=== PATIENT | female | born 1990 | race Two or more races ===

== ENCOUNTER 2017-08-30 12:00 | Inpatient (IN) | payer OTHER ==
[2017-08-30] MEDS ORDERED: Sodium Chloride 0.9% 10 ML Syringe FLUSH PRN (12:17)
[2017-08-30] MEDS ORDERED: Sodium Chloride 0.9% 2.5 ML Syringe FLUSH PRN (12:17)
[2017-08-30] MEDS ORDERED: Nalbuphine 10 MG/1 ML Vial IVPUSH PRN (12:17)
[2017-08-30] MEDS ORDERED: Lidocaine 1% 50 ML MDV INJECT PRN (12:17)
[2017-08-30] MEDS ORDERED: Carboprost Tromethamine 250 MCG/1 ML Amp IM PRN (12:17)
[2017-08-30] MEDS ORDERED: Water For Irrigation,Sterile 1,000 ML Container IRR PRN (12:17)
[2017-08-30] MEDS ORDERED: Misoprostol 200 MCG Tab PO PRN (12:17)
[2017-08-30] MEDS ORDERED: Terbutaline 1 MG/ML SDV SUBCUT PRN (12:17)
[2017-08-30] MEDS ORDERED: Butorphanol 1 MG/ML SDV IVPUSH PRN (12:17)
[2017-08-30] MEDS ORDERED: Methylergonovine 0.2 MG/1 ML Amp IM PRN ×2 (12:17→19:28)
[2017-08-30] MEDS ORDERED: Oxytocin/0.9 % Sodium Chloride 30 UNIT/500 ML BAG IV SCH ×2 (12:30)
[2017-08-30] MEDS: Lactated Ringers 1,000 ML IV SCH ×3 (12:50→14:24)
--- NOTE | 2017-08-30 12:58 | PCM.SN ---
- Free Text/Narrative Note: Anesthesia Note: Difficulty per nursing staff starting IV. 18 GA started to L AC - flushes easily and secured. Hx obtained from pt during this time and anesthesia consent signed.
--- NOTE | 2017-08-30 13:02 | PCM.PREANE ---
Preanesthetic Assessment - Anesthesia/Transfusion/Family Hx Anesthesia History: No Prior Anesthesia Family History of Anesthesia Reaction: No Transfusion History: No Prior Transfusion(s) - Review of Systems General: No Symptoms Pulmonary: No Symptoms Cardiovascular: No Symptoms Gastrointestinal: No Symptoms Neurological: No Symptoms Other: Reports: None - Physical Assessment NPO Status Date: 08/30/17 NPO Status Time: 12:30 (julia) Height: 5 ft 0.75 in Weight: 162 lb ASA Class: 1E Mental Status: Alert & Oriented x3 Airway Class: Mallampati = 2 Dentition: Reports: Normal Dentition Thyro-Mental Finger Breadths: 3 Mouth Opening Finger Breadths: 3 ROM/Head Extension: Full Lungs: Clear to Auscultation, Normal Respiratory Effort Cardiovascular: Regular Rate, Regular Rhythm - Blood Blood Available: No Product(s) Available: None - Anesthesia Plan Free Text/Narrative:: IV started and discussed with pt different options for anesthesia depending upon the urgency of the situation - including GETA and Spinal. Pt verbalizes understanding and states she does not have any questions at this time. - Acknowledgements Anesthesia Type Planned: General Anesthesia, Spinal Pt an Appropriate Candidate for the Planned Anesthesia: Yes Alternatives and Risks of Anesthesia Discussed w Pt/Guardian: Yes Pt/Guardian Understands and Agrees with Anesthesia Plan: Yes PreAnesthesia Questionnaire - CURRENT (IN HOUSE) MEDS Current Meds: Current Medications Butorphanol Tartrate (Stadol) 1 mg IVPUSH Q1H PRN PRN Reason: Pain Carboprost Tromethamine (Hemabate Ds) 250 mcg IM ASDIRECTED PRN PRN Reason: Post Hemorrhage Lactated Ringer's (Ringers, Lactated) 1,000 mls @ 150 mls/hr IV ASDIRECTED DONALD Oxytocin/Sodium Chloride (Oxytocin 30 Unit/500 Ml-Ns) 30 unit in 500 mls @ 250 mls/hr IV TITRATE DONALD Oxytocin/Sodium Chloride (Oxytocin 30 Unit/500 Ml-Ns) 30 unit in 500 mls @ 2 mls/hr IV TITRATE DONALD; 2 MUNITS/MIN PRN Reason: Protocol Lidocaine HCl (Xylocaine 1%) 50 ml INJECT .ONCE PRN PRN Reason: Laceration repair Methylergonovine Maleate (Methergine) 0.2 mg IM ASDIRECTED PRN PRN Reason: Post Hemorrhage Misoprostol (Cytotec) 200 mcg PO .ONCE PRN PRN Reason: Post Hemorrhage Nalbuphine HCl (Nubain) 10 mg IVPUSH Q1H PRN PRN Reason: Pain (severe 7-10) Sodium Chloride (Saline Flush) 10 ml FLUSH ASDIRECTED PRN PRN Reason: Keep Vein Open Sodium Chloride (Saline Flush) 2.5 ml FLUSH ASDIRECTED PRN PRN Reason: Keep Vein Open Sterile Water (Sterile Water For Irrigation) 1,000 ml IRR ASDIRECTED PRN PRN Reason: delivery Terbutaline Sulfate (Brethine) 0.25 mg SUBCUT ASDIRECTED PRN PRN Reason: Tacysystole
[2017-08-30] MEDS ORDERED: Oxytocin/0.9 % Sodium Chloride 30 UNIT/500 ML BAG ONE (13:06)
[2017-08-30] MEDS ORDERED: Morphine PF 10 MG/10 ML SDV ONE (13:12)
[2017-08-30] MEDS ORDERED: Sodium Chloride 0.9% Irrigation 500 ML Container IRR PRN (13:15)
[2017-08-30] MEDS ORDERED: Acetaminophen 500 MG Tab PO ONE (17:21)
[2017-08-30] MEDS ORDERED: Water For Irrigation,Sterile 500 ML Container IRR SCH (19:15)
[2017-08-30] MEDS ORDERED: Docusate Sodium 100 MG Cap PO PRN (19:28)
[2017-08-30] MEDS ORDERED: Bisacodyl 10 MG Supp RECTAL PRN (19:28)
[2017-08-30] MEDS ORDERED: oxyCODONE 5 MG Tab PO PRN (19:28)
[2017-08-30] MEDS ORDERED: Lanolin 100% Cream 7 GM Tube TOP PRN (19:28)
[2017-08-30] MEDS ORDERED: Ibuprofen 800 MG Tab PO PRN (19:28)
[2017-08-30] MEDS ORDERED: Benzocaine/Menthol 20%-0.5% Spray 78 GM Cannister TOP PRN (19:28)
[2017-08-30] MEDS ORDERED: Witch Hazel Medicated Pads 40/Jar TOP PRN (19:28)
[2017-08-30] MEDS: Acetaminophen 500 MG Tab PO PRN (23:00)
--- NOTE | 2017-08-31 00:52 | OR ---
SURGEON: Latoya Pacheco M.D. DATE OF PROCEDURE: 08/30/2017 PREOPERATIVE DIAGNOSIS: A 30 and 4/7th weeks intrauterine , abnormal testing, intrauterine growth restriction. POSTOPERATIVE DIAGNOSIS: A 30 and 4/7th weeks intrauterine , abnormal testing, intrauterine growth restriction and abnormal heart tones. PROCEDURE: Vacuum-assisted vaginal delivery. PRIMARY SURGEON: Latoya Pacheco M.D. ANESTHESIA: Pudendal. ESTIMATED BLOOD LOSS: Less than 200 mL. FINDINGS: Live-born male, scores 9 and 10. Weight is pending at the time of dictation. Placenta was delivered spontaneously. Schultze intact with 3 vessels. There did appear to be an area of infarction and the placenta was sent for pathology. There was a left vaginal laceration that was repaired. COMPLICATIONS: None known. DISPOSITION: Mother and baby are in LDRP in good condition. BRIEF HISTORY: This is a 26-year-old female. She is G1, P0. She presents at 38 and 4/7th weeks' gestation for an obstetrical visit. Two weeks previously, she was found to have decreased growth at the 13th percentile. Repeat ultrasound today showed no growth since her prior ultrasound. Additionally, growth was below the 5th percentile. She was receiving NSTs and biophysical profiles due to growth restriction and the NST showed a deceleration with a single contraction. Therefore, I did recommend proceeding with delivery either by a scheduled C- section or induction of labor. She desired a trial of induction of labor. She was initially 2 cm, 80%, -2 station. Balloon catheter was placed through the cervix and filled with 50 mL of saline internally and externally in the balloon. Pitocin was started. After placement of the balloon, she had category 1 heart tones for the majority of labor. She had spontaneous rupture of membranes and expelled the balloon. At this point, she was 5-6 cm dilated. Within 45 minutes, she had progressed to complete. At this time, she was having deep decelerations and she was encouraged to push. DESCRIPTION OF PROCEDURE: With the patient in dorsal lithotomy position, the perineum was prepped with chlorhexidine and draped in the usual fashion for vaginal delivery. I did offer a pudendal block as I wanted to expedite delivery and it was difficult for her to push with pain on the perineum. A total of 10 mL of 1% lidocaine was injected 1 cm medial and inferior to the spinous process on the right and the left. With this, she had good perineal analgesia. She continued to push to a 4+ station. However, at this point, there was bradycardia. The bladder was emptied. The fetus was in the left occiput anterior position and I did recommend proceeding with a vacuum assistance, which she agreed to. The vacuum was placed 2 cm anterior to the posterior fontanelle in the midsagittal line. She did have a gynecoid pelvis and estimated weight was less than 5 pounds and with a single contraction, the fetus was delivered over the perineum with support. The vacuum was removed. Subsequent delivery of the infant's shoulders and body was performed. There was a tight nuchal cord that was then reduced. The infant was bulb suctioned by nose and mouth. The cord was clamped x2, after it had ceased to pulsate and was cut and Dr. Pope was present at the time of delivery. The is a liveborn male, scores were 9 and 10 and weight is pending at the time of dictation. Cord blood was collected for cord ABGs as well as routine cord blood sampling. Pitocin was initiated after delivery of the to assist with delivery of the placenta, which was delivered spontaneously. Schultze intact with 3 vessels. Upon inspection of the pelvis and perineum, there was a left vaginal sidewall laceration that was somewhat undermined, but did not extend onto the perineum. An additional 10 mL of 1% lidocaine was injected into the area. Running lock suture was utilized to reapproximate the vaginal mucosa and deep sutures were placed for complete hemostasis. Final sponge, needle, and instrument counts were correct. There were no known complications. Mother and are in LDRP in good condition. DAIJA / BASIL /[id number]
--- NOTE | 2017-08-31 06:16 | PCM.PNPP ---
- General Info Date of Service: 08/31/17 Functional Status: Reports: Pain Controlled, Tolerating Diet, Ambulating, Urinating - Review of Systems General: Denies: Fever, Fatigue, Chills HEENT: Denies: Headaches Pulmonary: Denies: Shortness of Breath Cardiovascular: Denies: Chest Pain, Palpitations, Dyspnea on Exertion Gastrointestinal: Denies: Abdominal Pain Genitourinary: Denies: Burning, Incontinence Musculoskeletal: Reports: No Symptoms Skin: Reports: No Symptoms Neurological: Reports: No Symptoms Psychiatric: Reports: No Symptoms - General Info Date of Service: 08/31/17 - Patient Data Vital Signs - Most Recent: Last Vital Signs Temp 36.9 C 08/31/17 04:00 Pulse 68 08/31/17 04:00 Resp 17 08/31/17 04:00 BP 115/72 08/31/17 04:00 Pulse Ox 97 08/31/17 04:00 Weight - Most Recent: 162 lb I&O - Last 24 Hours: Intake & Output 08/30/17 08/30/17 08/31/17 14:59 22:59 06:59 Intake Total 750 Balance 750 Lab Results - Last 24 Hours: Laboratory Results - last 24 hr 08/30/17 08/30/17 08/31/17 Range/Units 12:48 12:48 05:39 WBC 9.68 (4.0-11.0) K/uL RBC 4.33 (4.30-5.90) M/uL Hgb 13.0 10.7 L (12.0-16.0) g/dL Hct 37.8 30.7 L (36.0-46.0) % MCV 87.3 (80.0-98.0) fL MCH 30.0 (27.0-32.0) pg MCHC 34.4 (31.0-37.0) g/dL RDW Std Deviation 41.8 (28.0-62.0) fl RDW Coeff of Priya 13 (11.0-15.0) % Plt Count 220 (150-400) K/uL MPV 10.20 (7.40-12.00) fL Nucleated RBC % 0.0 /100WBC Nucleated RBCs # 0 K/uL Blood Type O POSITIVE Antibody Screen NEGATIVE Med Orders - Current: Current Medications Acetaminophen (Tylenol Extra Strength) 1,000 mg PO Q4H PRN PRN Reason: Pain Last Admin: 08/30/17 23:00 Dose: 1,000 mg Benzocaine/Menthol (Dermoplast Pain Relief 20%-0.5% [place]) 0 gm TOP ASDIRECTED PRN PRN Reason: Perineal Comfort Measure Last Admin: 08/30/17 21:48 Dose: 1 canister Bisacodyl (Dulcolax) 10 mg RECTAL .ONCE PRN PRN Reason: Constipation Docusate Sodium (Colace) 100 mg PO BID PRN PRN Reason: Constipation Emollient Ointment (Lansinoh Hpa) 0 gm TOP ASDIRECTED PRN PRN Reason: Sore Nipples Ibuprofen (Motrin) 800 mg PO Q6H PRN PRN Reason: Pain Methylergonovine Maleate (Methergine) 0.2 mg IM .ONCE PRN PRN Reason: Excessive Vaginal Bleeding Oxycodone HCl (Oxycodone) 5 mg PO Q2H PRN PRN Reason: Pain Witch [place] (Tucks) 1 pad TOP ASDIRECTED PRN PRN Reason: comfort care Last Admin: 08/30/17 21:47 Dose: 1 tub Discontinued Medications Acetaminophen (Tylenol Extra Strength) 1,000 mg PO ONETIME ONE Stop: 08/30/17 17:22 Last Admin: 08/30/17 17:34 Dose: 1,000 mg Butorphanol Tartrate (Stadol) 1 mg IVPUSH Q1H PRN PRN Reason: Pain Last Admin: 08/30/17 18:10 Dose: 1 mg Carboprost Tromethamine (Hemabate Ds) 250 mcg IM ASDIRECTED PRN PRN Reason: Post Hemorrhage Lactated Ringer's (Ringers, Lactated) 1,000 mls @ 150 mls/hr IV ASDIRECTED DONALD Last Admin: 08/30/17 14:24 Dose: 150 mls/hr Oxytocin/Sodium Chloride (Oxytocin 30 Unit/500 Ml-Ns) 30 unit in 500 mls @ 250 mls/hr IV TITRATE DONALD Oxytocin/Sodium Chloride (Oxytocin 30 Unit/500 Ml-Ns) 30 unit in 500 mls @ 2 mls/hr IV TITRATE DONALD; 2 MUNITS/MIN PRN Reason: Protocol Last Titration: 08/30/17 18:48 Dose: 250 munits/min, 250 mls/hr Oxytocin/Sodium Chloride (Oxytocin 30 Unit/500 Ml-Ns) Confirm Administered Dose 30 unit in 500 mls @ as directed .ROUTE .[place] ONE Stop: 08/30/17 13:07 Lidocaine HCl (Xylocaine 1%) 50 ml INJECT .ONCE PRN PRN Reason: Laceration repair Last Admin: 08/30/17 18:40 Dose: 50 ml Methylergonovine Maleate (Methergine) 0.2 mg IM ASDIRECTED PRN PRN Reason: Post Hemorrhage Misoprostol (Cytotec) 200 mcg PO .ONCE PRN PRN Reason: Post Hemorrhage Morphine Sulfate (Duramorph Pf) Confirm Administered Dose 10 mg .ROUTE .[place] ONE Stop: 08/30/17 13:13 Nalbuphine HCl (Nubain) 10 mg IVPUSH Q1H PRN PRN Reason: Pain (severe 7-10) Sodium Chloride (Saline Flush) 10 ml FLUSH ASDIRECTED PRN PRN Reason: Keep Vein Open Sodium Chloride (Saline Flush) 2.5 ml FLUSH ASDIRECTED PRN PRN Reason: Keep Vein Open Sodium Chloride (Sodium Chloride 0.9%) 500 ml IRR ASDIRECTED PRN PRN Reason: Cervical ripening balloons Sterile Water (Sterile Water For Irrigation) 1,000 ml IRR ASDIRECTED PRN PRN Reason: delivery Last Admin: 08/30/17 18:40 Dose: 1,000 ml Sterile Water (Sterile Water For Irrigation) 500 ml IRR ASDIRECTED DONALD Terbutaline Sulfate (Brethine) 0.25 mg SUBCUT ASDIRECTED PRN PRN Reason: Tacysystole - Infant Interaction Infant Disposition, : [place] in Room with Family Infant Feeding: Breastfed Infant; Nursed Well Support Person: Significant Other - Recovery Exam Fundal Tone: Firm Fundal Level: 1 Fingerbreadths Below Umbilicus Fundal Placement: Midline Lochia Amount: Scant Lochia Color: Rubra/Red Episiotomy/Laceration: Approximated Bladder Status: Voiding Urinary Elimination: Voided - Exam General: Alert, Oriented Neck: Supple Lungs: Clear to Auscultation, Normal Respiratory Effort Cardiovascular: Regular Rate, Regular Rhythm GI/Abdominal Exam: Normal Bowel Sounds, Non-Tender Extremities: No Pedal Edema Skin: Warm Psy/Mental Status: Alert, Normal Affect, Normal Mood - Problem List & Annotations (1) Vaginal delivery SNOMED Code(s): 480472203 Code(s): O80 - ENCOUNTER FOR FULL-TERM UNCOMPLICATED DELIVERY Status: Acute Current Visit: Yes - Problem List Review Problem List Initiated/Reviewed/Updated: Yes - Assessment Assessment:: PPD#1 s/p , stable and afebrile - Plan Plan:: Doing well. SGA baby- doing well Continue current care and aim for discharge tomorrow
--- NOTE | 2017-08-31 15:33 | PCM48HPAN ---
Post Anesthesia Note - EVALUATION WITHIN 48HRS OF ANESTHETIC Vital Signs in Normal Range: Yes Patient Participated in Evaluation: Yes Respiratory Function Stable: Yes Airway Patent: Yes Cardiovascular Function Stable: Yes Hydration Status Stable: Yes Pain Control Satisfactory: Yes Nausea and Vomiting Control Satisfactory: Yes Mental Status Recovered: Yes
[2017-09-01] MEDS: Acetaminophen 500 MG Tab PO PRN (06:51)
--- NOTE | 2017-09-01 08:15 | PCM.PNPP ---
<Betzaida Pitts - Last Filed: 09/01/17 08:12> - General Info Date of Service: 09/01/17 Functional Status: Reports: Pain Controlled, Tolerating Diet, Ambulating, Urinating - Review of Systems General: Denies: Fever, Weakness, Fatigue Pulmonary: Denies: Shortness of Breath, Pleuritic Chest Pain, Cough Cardiovascular: Denies: Chest Pain, Palpitations, Dyspnea on Exertion Gastrointestinal: Denies: Abdominal Pain Genitourinary: Denies: Dysuria - General Info Date of Service: 09/01/17 - Patient Data Vital Signs - Most Recent: Last Vital Signs Temp 36.8 C 08/31/17 19:00 Pulse 99 08/31/17 19:00 Resp 16 08/31/17 19:00 BP 129/83 08/31/17 19:00 Pulse Ox 99 08/31/17 19:00 Weight - Most Recent: 162 lb Med Orders - Current: Current Medications Acetaminophen (Tylenol Extra Strength) 1,000 mg PO Q4H PRN PRN Reason: Pain Last Admin: 09/01/17 06:51 Dose: 1,000 mg Benzocaine/Menthol (Dermoplast Pain Relief 20%-0.5% [place]) 0 gm TOP ASDIRECTED PRN PRN Reason: Perineal Comfort Measure Last Admin: 08/30/17 21:48 Dose: 1 canister Bisacodyl (Dulcolax) 10 mg RECTAL .ONCE PRN PRN Reason: Constipation Docusate Sodium (Colace) 100 mg PO BID PRN PRN Reason: Constipation Emollient Ointment (Lansinoh Hpa) 0 gm TOP ASDIRECTED PRN PRN Reason: Sore Nipples Last Admin: 09/01/17 06:51 Dose: 7 gm Ibuprofen (Motrin) 800 mg PO Q6H PRN PRN Reason: Pain Methylergonovine Maleate (Methergine) 0.2 mg IM .ONCE PRN PRN Reason: Excessive Vaginal Bleeding Oxycodone HCl (Oxycodone) 5 mg PO Q2H PRN PRN Reason: Pain Witch [place] (Tucks) 1 pad TOP ASDIRECTED PRN PRN Reason: comfort care Last Admin: 08/30/17 21:47 Dose: 1 tub Discontinued Medications Acetaminophen (Tylenol Extra Strength) 1,000 mg PO ONETIME ONE Stop: 08/30/17 17:22 Last Admin: 08/30/17 17:34 Dose: 1,000 mg Butorphanol Tartrate (Stadol) 1 mg IVPUSH Q1H PRN PRN Reason: Pain Last Admin: 08/30/17 18:10 Dose: 1 mg Carboprost Tromethamine (Hemabate Ds) 250 mcg IM ASDIRECTED PRN PRN Reason: Post Hemorrhage Lactated Ringer's (Ringers, Lactated) 1,000 mls @ 150 mls/hr IV ASDIRECTED DONALD Last Admin: 08/30/17 14:24 Dose: 150 mls/hr Oxytocin/Sodium Chloride (Oxytocin 30 Unit/500 Ml-Ns) 30 unit in 500 mls @ 250 mls/hr IV TITRATE DONALD Oxytocin/Sodium Chloride (Oxytocin 30 Unit/500 Ml-Ns) 30 unit in 500 mls @ 2 mls/hr IV TITRATE DONALD; 2 MUNITS/MIN PRN Reason: Protocol Last Titration: 08/30/17 18:48 Dose: 250 munits/min, 250 mls/hr Oxytocin/Sodium Chloride (Oxytocin 30 Unit/500 Ml-Ns) Confirm Administered Dose 30 unit in 500 mls @ as directed .ROUTE .STK-MED ONE Stop: 08/30/17 13:07 Last Admin: 08/31/17 09:06 Dose: Not Given Lidocaine HCl (Xylocaine 1%) 50 ml INJECT .ONCE PRN PRN Reason: Laceration repair Last Admin: 08/30/17 18:40 Dose: 50 ml Methylergonovine Maleate (Methergine) 0.2 mg IM ASDIRECTED PRN PRN Reason: Post Hemorrhage Misoprostol (Cytotec) 200 mcg PO .ONCE PRN PRN Reason: Post Hemorrhage Morphine Sulfate (Duramorph Pf) Confirm Administered Dose 10 mg .ROUTE .STK-MED ONE Stop: 08/30/17 13:13 Nalbuphine HCl (Nubain) 10 mg IVPUSH Q1H PRN PRN Reason: Pain (severe 7-10) Sodium Chloride (Saline Flush) 10 ml FLUSH ASDIRECTED PRN PRN Reason: Keep Vein Open Sodium Chloride (Saline Flush) 2.5 ml FLUSH ASDIRECTED PRN PRN Reason: Keep Vein Open Sodium Chloride (Sodium Chloride 0.9%) 500 ml IRR ASDIRECTED PRN PRN Reason: Cervical ripening balloons Sterile Water (Sterile Water For Irrigation) 1,000 ml IRR ASDIRECTED PRN PRN Reason: delivery Last Admin: 08/30/17 18:40 Dose: 1,000 ml Sterile Water (Sterile Water For Irrigation) 500 ml IRR ASDIRECTED DONALD Terbutaline Sulfate (Brethine) 0.25 mg SUBCUT ASDIRECTED PRN PRN Reason: Tacysystole - Interaction Disposition, : in Room with Family Feeding: Breastfed ; Nursed Well Support Person: Significant Other - Recovery Exam Fundal Tone: Firm Fundal Level: At Umbilicus Fundal Placement: Midline Lochia Amount: Small Lochia Color: Rubra/Red Episiotomy/Laceration: Approximated Bladder Status: Voiding Urinary Elimination: Voided - Exam General: Alert, Oriented Neck: Supple Lungs: Clear to Auscultation, Normal Respiratory Effort Cardiovascular: Regular Rate, Regular Rhythm GI/Abdominal Exam: Normal Bowel Sounds, Soft, No Distention, No Mass Extremities: Normal Inspection, Pedal Edema (trace) - Problem List Review Problem List Initiated/Reviewed/Updated: Yes - Assessment Assessment:: PPD#s s/p , Minimal lochia and pain. Discharge home today. - Plan Plan:: Discharge home today. Nothing in the vagina for 6 weeks. Continue PNV while breast feeding. Can use OTC ibuprofen/tylenol as needed for pain. Instructed patient to call if she develops fever greater than 101 or bleeding through a large pad an hour. F/U with [facility] in 6 weeks. <Kelly Glover - Last Filed: 09/01/17 09:11> - Patient Data Vital Signs - Most Recent: Last Vital Signs Temp 36.8 C 08/31/17 19:00 Pulse 99 08/31/17 19:00 Resp 16 08/31/17 19:00 BP 129/83 08/31/17 19:00 Pulse Ox 99 08/31/17 19:00 Med Orders - Current: Current Medications Acetaminophen (Tylenol Extra Strength) 1,000 mg PO Q4H PRN PRN Reason: Pain Last Admin: 09/01/17 06:51 Dose: 1,000 mg Benzocaine/Menthol (Dermoplast Pain Relief 20%-0.5% [place]) 0 gm TOP ASDIRECTED PRN PRN Reason: Perineal Comfort Measure Last Admin: 08/30/17 21:48 Dose: 1 canister Bisacodyl (Dulcolax) 10 mg RECTAL .ONCE PRN PRN Reason: Constipation Docusate Sodium (Colace) 100 mg PO BID PRN PRN Reason: Constipation Emollient Ointment (Lansinoh Hpa) 0 gm TOP ASDIRECTED PRN PRN Reason: Sore Nipples Last Admin: 09/01/17 06:51 Dose: 7 gm Ibuprofen (Motrin) 800 mg PO Q6H PRN PRN Reason: Pain Methylergonovine Maleate (Methergine) 0.2 mg IM .ONCE PRN PRN Reason: Excessive Vaginal Bleeding Oxycodone HCl (Oxycodone) 5 mg PO Q2H PRN PRN Reason: Pain Witch [place] (Tucks) 1 pad TOP ASDIRECTED PRN PRN Reason: comfort care Last Admin: 08/30/17 21:47 Dose: 1 tub Discontinued Medications Acetaminophen (Tylenol Extra Strength) 1,000 mg PO ONETIME ONE Stop: 08/30/17 17:22 Last Admin: 08/30/17 17:34 Dose: 1,000 mg Butorphanol Tartrate (Stadol) 1 mg IVPUSH Q1H PRN PRN Reason: Pain Last Admin: 08/30/17 18:10 Dose: 1 mg Carboprost Tromethamine (Hemabate Ds) 250 mcg IM ASDIRECTED PRN PRN Reason: Post Hemorrhage Lactated Ringer's (Ringers, Lactated) 1,000 mls @ 150 mls/hr IV ASDIRECTED DONALD Last Admin: 08/30/17 14:24 Dose: 150 mls/hr Oxytocin/Sodium Chloride (Oxytocin 30 Unit/500 Ml-Ns) 30 unit in 500 mls @ 250 mls/hr IV TITRATE DONALD Oxytocin/Sodium Chloride (Oxytocin 30 Unit/500 Ml-Ns) 30 unit in 500 mls @ 2 mls/hr IV TITRATE DONALD; 2 MUNITS/MIN PRN Reason: Protocol Last Titration: 08/30/17 18:48 Dose: 250 munits/min, 250 mls/hr Oxytocin/Sodium Chloride (Oxytocin 30 Unit/500 Ml-Ns) Confirm Administered Dose 30 unit in 500 mls @ as directed .ROUTE .STK-MED ONE Stop: 08/30/17 13:07 Last Admin: 08/31/17 09:06 Dose: Not Given Lidocaine HCl (Xylocaine 1%) 50 ml INJECT .ONCE PRN PRN Reason: Laceration repair Last Admin: 08/30/17 18:40 Dose: 50 ml Methylergonovine Maleate (Methergine) 0.2 mg IM ASDIRECTED PRN PRN Reason: Post Hemorrhage Misoprostol (Cytotec) 200 mcg PO .ONCE PRN PRN Reason: Post Hemorrhage Morphine Sulfate (Duramorph Pf) Confirm Administered Dose 10 mg .ROUTE .STK-MED ONE Stop: 08/30/17 13:13 Nalbuphine HCl (Nubain) 10 mg IVPUSH Q1H PRN PRN Reason: Pain (severe 7-10) Sodium Chloride (Saline Flush) 10 ml FLUSH ASDIRECTED PRN PRN Reason: Keep Vein Open Sodium Chloride (Saline Flush) 2.5 ml FLUSH ASDIRECTED PRN PRN Reason: Keep Vein Open Sodium Chloride (Sodium Chloride 0.9%) 500 ml IRR ASDIRECTED PRN PRN Reason: Cervical ripening balloons Sterile Water (Sterile Water For Irrigation) 1,000 ml IRR ASDIRECTED PRN PRN Reason: delivery Last Admin: 08/30/17 18:40 Dose: 1,000 ml Sterile Water (Sterile Water For Irrigation) 500 ml IRR ASDIRECTED DONALD Terbutaline Sulfate (Brethine) 0.25 mg SUBCUT ASDIRECTED PRN PRN Reason: Tacysystole - Problem List & Annotations (1) Vaginal delivery SNOMED Code(s): 422106117 Code(s): O80 - ENCOUNTER FOR FULL-TERM UNCOMPLICATED DELIVERY Status: Acute Current Visit: Yes - Assessment Assessment:: Patient seen and evaluated independently - Plan Plan:: Agree with above. Patient may be discharged home today
== END 2017-09-01 11:00 | disposition home or self-care (01) | DRG 775 ==
LOC: MW.OBCHECK 12:00 → MW.OB 12:05 → MW.OBCHECK 12:29 → MW.OB 12:29 → OBSVTOIN 18:45 → MW.OB 08-31 02:16
PROVIDERS: ADMIT Obstetrics & Gynecology; ATTEND Obstetrics & Gynecology
PROC: 10D07Z6 Extraction of Products of Conception, Vacuum, Via Natural or Artificial Opening (ICD-10-PCS; principal; 2017-08-30)
PROC: 0U7C7ZZ Dilation of Cervix, Via Natural or Artificial Opening (ICD-10-PCS; 2017-08-30)
PROC: 3E033VJ Introduction of Other Hormone into Peripheral Vein, Percutaneous Approach (ICD-10-PCS; 2017-08-30)
PROC: 0HQ9XZZ Repair Perineum Skin, External Approach (ICD-10-PCS; 2017-08-30)
DX: O36.5930 Maternal care for other known or suspected poor fetal growth, third trimester, not applicable or unspecified (principal); O76 Abnormality in fetal heart rate and rhythm complicating labor and delivery; Z3A.38 38 weeks gestation of pregnancy; Z37.0 Single live birth
CPT/HCPCS: 36410; 36415; 59025; 59409; 85014; 85018; 85027; 86850; 86900; 86901; 88307; A9270-GY; J0595; J2270; J2590; J7120

== ENCOUNTER 2018-09-20 10:22 | Day surgery (SDC) | payer OTHER ==
[~2018-09-20 10:22] MED LIST: Lactated Ringers 1,000 ML IV SCH; ceFAZolin 2 GM in Premix Bag 1 BAG IV ONE
[2018-09-20] MEDS ORDERED: diphenhydrAMINE 50 MG/ML SDV ONE (10:50)
[2018-09-20] MEDS ORDERED: Phenylephrine/Normal Saline 100 MCG/ML 10 ML Syringe ONE (10:51)
[2018-09-20] MEDS ORDERED: Dexamethasone 4 MG/ML 5 ML MDV ONE (10:51)
[2018-09-20] MEDS ORDERED: Ondansetron 4 MG/2 ML SDV ONE (10:51)
[2018-09-20] MEDS ORDERED: Midazolam 1 MG/ML 2 ML SDV ONE (10:52)
[2018-09-20] MEDS ORDERED: Propofol 200 MG/20 ML SDV ONE (10:52)
[2018-09-20] MEDS ORDERED: fentaNYL 100 MCG/2 ML SDV ONE (10:53)
--- NOTE | 2018-09-20 11:36 | PCM.PREANE ---
Preanesthetic Assessment - Anesthesia/Transfusion/Family Hx Anesthesia History: No Prior Anesthesia (no surgeries in her life) Family History of Anesthesia Reaction: No Transfusion History: No Prior Transfusion(s) - Review of Systems General: No Symptoms Pulmonary: No Symptoms Cardiovascular: No Symptoms, Edema Gastrointestinal: No Symptoms Neurological: No Symptoms Other: Reports: None (eczema, quit smoking 2017, slightly overweight) - Physical Assessment NPO Status Date: 09/20/18 NPO Status Time: 00:00 Pulse: 68 O2 Sat by Pulse Oximetry: 97 Respiratory Rate: 16 Blood Pressure: 110/57 Temperature: 36.2 C Vital Signs: Last Vital Signs Temp 36.2 C 09/20/18 11:05 Pulse 68 09/20/18 11:05 Resp 16 09/20/18 11:05 BP 110/59 L 09/20/18 11:05 Pulse Ox 97 09/20/18 11:05 Height: 1.52 m Weight: 72.575 kg ASA Class: 1 Mental Status: Alert & Oriented x3 Airway Class: Mallampati = 1 Dentition: Reports: Normal Dentition Thyro-Mental Finger Breadths: 2 Mouth Opening Finger Breadths: 3 ROM/Head Extension: Full Lungs: Clear to Auscultation, Normal Respiratory Effort Cardiovascular: Regular Rate, Regular Rhythm, No Murmurs - Lab Values: Laboratory Last Values Urine HCG, Qual NEGATIVE (NEGATIVE) 09/20/18 11:00 CBC and CMP and UA were all well within normal limits - Imaging/EKG Impressions: EKG and [employer] were unremarkable. - Allergies Allergies/Adverse Reactions: Allergies Allergy/AdvReac Type Severity Reaction Status Date / Time No Known Allergies Allergy Verified 09/17/18 13:00 - Blood Blood Available: No Product(s) Available: None - Anesthesia Plan Pre-Op Medication Ordered: None - Acknowledgements Anesthesia Type Planned: General Anesthesia (Plan: GA with LMA (no history of GERD)) Pt an Appropriate Candidate for the Planned Anesthesia: Yes Alternatives and Risks of Anesthesia Discussed w Pt/Guardian: Yes Pt/Guardian Understands and Agrees with Anesthesia Plan: Yes PreAnesthesia Questionnaire - Past Health History Medical/Surgical History: Denies Medical/Surgical History HEENT History: Reports: Other (See Below) Other HEENT History: wears glasses Cardiovascular History: Reports: Automatic Implantable Cardioverter Defibrillators Endocrine/Metabolic History: Reports: Obesity/BMI 30+ Dermatologic History: Reports: Eczema - Infectious Disease History Infectious Disease History: Reports: Chicken Pox - Past Surgical History Head Surgeries/Procedures: Reports: None - SUBSTANCE USE Smoking Status *Q: Former Smoker Recreational Drug Use History: No - HOME MEDS Home Medications: Home Meds . [No Known Home Meds] 09/17/18 [History] - CURRENT (IN HOUSE) MEDS Current Meds: Current Medications Lactated Ringer's (Ringers, Lactated) 1,000 mls @ 125 mls/hr IV ASDIRECTED DONALD Last Admin: 09/20/18 11:19 Dose: 125 mls/hr Discontinued Medications Dexamethasone (Dexamethasone) Confirm Administered Dose 20 mg .ROUTE .STK-MED ONE Stop: 09/20/18 10:52 Diphenhydramine HCl (Benadryl) Confirm Administered Dose 50 mg .ROUTE .STK-MED ONE Stop: 09/20/18 10:51 Fentanyl (Sublimaze) Confirm Administered Dose 100 mcg .ROUTE .STK-MED ONE Stop: 09/20/18 10:54 Cefazolin Sodium/Dextrose 2 gm (/ Premix) 50 mls @ 100 mls/hr IV ONETIME ONE Stop: 09/19/18 23:22 Lidocaine HCl (Xylocaine-Mpf 1%) Confirm Administered Dose 5 mls @ as directed .ROUTE .STK-MED ONE Stop: 09/20/18 10:52 Midazolam HCl (Versed 1 Mg/Ml) Confirm Administered Dose 2 mg .ROUTE .STK-MED ONE Stop: 09/20/18 10:53 Ondansetron HCl (Zofran) Confirm Administered Dose 4 mg .ROUTE .STK-MED ONE Stop: 09/20/18 10:52 Phenylephrine HCl (Phenylephrine In Ns 100 Mcg/Ml) Confirm Administered Dose 1 mg .ROUTE .STK-MED ONE Stop: 09/20/18 10:52 Propofol (Diprivan 20 Ml) Confirm Administered Dose 200 mg .ROUTE .STK-MED ONE Stop: 09/20/18 10:53
--- NOTE | 2018-09-20 11:37 | PCM.SN ---
- Free Text/Narrative Note: H+P reviewed, patient is healthy and has no significant changes since H+P was done. Sticker signed on last page of H+P to update. Kaley Cardoso MD Anesthesiologist
[2018-09-20] MEDS ORDERED: Bupivacaine 0.5% 30 ML SDV ONE (12:46)
--- NOTE | 2018-09-20 13:01 | PN ---
PLANNED PROCEDURE: Open reduction with internal fixation of fifth metatarsal fracture, right foot. PAST MEDICAL HISTORY: Allergies: No known drug allergies. MEDICATIONS: None. PAST SURGICAL HISTORY: None. LABORATORY DATA: White blood cell 5.93, red blood cell 4.73, hemoglobin 13.5, hematocrit 41.3, and platelets 372. Glucose 100. Calcium 9.9, BUN 10, creatinine 0.7, sodium 139, potassium 4.1, chloride 104, and CO2 of 28. Urinalysis was unremarkable. Chest x-ray showed no acute cardiopulmonary process. EKG showed normal sinus rhythm. The patient was cleared by Dr. Kourtney Bustillos with no contraindications to surgery noted. All the patient's questions have been answered. No guarantees expressed or implied. Risks and benefits of surgery have been discussed with the patient including risk of nonunion, risk of postoperative infection, risk of prolonged healing. The patient understands risks and benefits and has consented in writing with a witness present to surgery today consisting of open reduction with internal fixation of the fifth metatarsal fracture of the right foot. No guarantees expressed or implied. COLT GRACIA /[id number]
[2018-09-20] MEDS ORDERED: HYDROmorphone 2 MG/ML SDV IVPUSH PRN (13:20)
[2018-09-20] MEDS ORDERED: Meperidine PF 25 MG/ML Syringe IVPUSH SCH (13:30)
[2018-09-20] MEDS ORDERED: Promethazine 25 MG/ML SDV IM SCH (13:30)
--- NOTE | 2018-09-20 15:04 | CR ---
EXAMINATION: Right foot HISTORY: Open reduction COMPARISON: 08/09/2018 TECHNIQUE: Total of 8 fluoroscopic images provided FINDINGS/IMPRESSION: Operative control films demonstrate a single screw fixating a proximal fifth metatarsal fracture.
--- NOTE | 2018-09-20 15:34 | PCM.OPNOTE ---
- General Post-Op/Procedure Note Date of Surgery/Procedure: 09/20/18 Operative Procedure(s): open reduction with internal fixation of fifth metatarsal fracture right foot Findings: consistent with diagnosis Pre Op Diagnosis: fracture of fifth metatarsal right foot Post-Op Diagnosis: fracture of fifth metatarsal right foot Anesthesia Technique: General LMA Primary Surgeon: Garth Abel Anesthesia Provider: Cade Cardoso Pathology: none EBL in mLs: 5 Complications: none Condition: Good Free Text/Narrative:: materials: 4-0 vicryl, 4-0 prolene, [place] titanium cannulated intramedullar screw 5.0 mm x 42 mm, one injectables: 8 ml 0.5% bupviacaine plain
--- NOTE | 2018-09-20 15:40 | PCM.POSTAN ---
POST ANESTHESIA ASSESSMENT - MENTAL STATUS Mental Status: Oriented, Somnolent (awake but sleepy/drowsy. Easiy responds to verbal stimuli) - VITAL SIGNS Pulse Rate: 68 SaO2: 100 Resp Rate: 15 Blood Pressure: 113/65 - RESPIRATORY Respiratory Status: Respiratory Rate WNL, Airway Patent, O2 Saturation Stable - CARDIOVASCULAR CV Status: Pulse Rate WNL, Blood Pressure Stable - GASTROINTESTINAL GI Status: No Symptoms - PAIN Pain Score: 1 (local infiltration by surgeon, Toradol and fentanyl in OR) - POST OP HYDRATION Hydration Status: Adequate & Stable - OBSERVATIONS Free Text/Narrative:: good post op phase I recovery
--- NOTE | 2018-09-20 15:57 | PCM48HPAN ---
Post Anesthesia Note - EVALUATION WITHIN 48HRS OF ANESTHETIC Vital Signs in Normal Range: Yes Patient Participated in Evaluation: Yes Respiratory Function Stable: Yes Airway Patent: Yes Cardiovascular Function Stable: Yes Hydration Status Stable: Yes Pain Control Satisfactory: Yes Nausea and Vomiting Control Satisfactory: Yes Pulse Rate: 68 Resp Rate: 16 Temperature: 36.2 C Blood Pressure: 113/65 - COMMENTS/OBSERVATIONS Free Text/Narrative:: awake and alert. Drinking . Pain /10. Ready to go home with fianc. Good postop phase II recovery.
--- NOTE | 2018-09-21 11:15 | OR ---
SURGEON: Garth Abel DPM DATE OF PROCEDURE: 09/20/2018 PREOPERATIVE DIAGNOSIS: Fracture of the 5th metatarsal, right foot. POSTOPERATIVE DIAGNOSIS: Fracture of the 5th metatarsal, right foot. OPERATIVE PROCEDURE: Open reduction and internal fixation of 5th metatarsal fracture, right foot. FINDINGS: Consistent with diagnosis. HEMOSTASIS: Above ankle pneumatic tourniquet inflated to a pressure of 250 mmHg after an Esmarch bandage exsanguination of the right lower extremity. PATHOLOGY: None. ESTIMATED BLOOD LOSS: 5 mL. COMPLICATIONS: None. MATERIALS: One [place] titanium partially threaded and cannulated screw measuring 5 mm diameter x 42 mm in length, 4-0 Vicryl, and 4-0 Prolene. INJECTABLES: 8 mL of 0.5% Marcaine plain. CONDITION: The patient tolerated the procedure and the anesthesia well. No complications were noted as the patient had a prompt hyperemic response to all digits of the right foot upon deflation of the above ankle pneumatic tourniquet. The patient tolerated the procedure and the anesthesia well and no complication. 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 She has been treated conservatively since then and on followup examination and x-ray, there was no appreciable improvement in her fracture at the site on the 5th metatarsal which is well documented for having poor vascularity and therefore there is a high likelihood of nonunion if surgery is not performed and this risk is decreased, although not eliminated by performing surgery at this point. The patient desires to do everything possible to speed her recovery and opts for surgical treatment today. The patient understands risks and benefits of the surgery including the potential for a malunion or nonunion, and the usual small risk of a postoperative infection. All patient questions have been answered. No guarantees expressed or implied. The patient signed the consent form with a witness present and it was placed in the patient's chart. PROCEDURE IN DETAIL: The patient was brought into the operating room, placed on the operating table initially in a supine position, at which time anesthesia was induced. The patient was then rotated into a lateral decubitus position with the right lower extremity superior to the left lower extremity. Aseptic scrub and drape were performed about the right lower extremity in the usual aseptic manner. Preoperative fluoroscopy utilized to lianna relevant anatomy and to plan the incision site. Tourniquet was inflated following Esmarch bandage exsanguination to a pressure of 250 mmHg. Procedure proceeded with an approximately 1.5 oblique incision located approximately 1 cm proximal to the base of the 5th metatarsal of the right foot, and this was then followed by an approximately 1 cm linear incision from proximal to distal and placed directly over the base of the 5th metatarsal, lateral aspect in order to visualize the very proximal fracture. The incision was deepened using both the sharp and blunt dissection. Care was taken to preserve and protect the neural and tendinous structures. The sural nerve was not visualized through these incisions although care was taken to avoid any structure that could have represented the sural nerve. The peroneus brevis tendon was retracted plantarly to enable access to the base of the 5th metatarsal and the insertion of the K-wire. There were no small bleeders noted that required any cauterizing. Intraoperative fluoroscopy was used throughout the procedure. K-wire mounted on the wire steam train driver was advanced from proximal to distal through the center of the shaft of the 5th metatarsal approximately [address] through the bone and this facilitated drilling of the medullary canal and measurements taken leading to the selection of a 5.0 x 42 mm [place] titanium partially threaded and cannulated screw. The screw was advanced and tapping was not required other than the use of the initial drill. The drill having been withdrawn, the K-wire retracted along with the drill bit and so I manually re-inserted the K-wire after locating the entry point and advanced it using a wire steam train driver and then placed the screw over the wire and advanced it under intraoperative fluoroscopy. Excellent position of the screw was noted and excellent purchase was felt as the screw was advanced through the final 3rd of the bone in which is lay. The screw was well centered in the medullary canal, and intraoperative fluoroscopy confirmed excellent positioning in all views AP, lateral, and oblique and compression was achieved across the fracture site. The K-wire was withdrawn. The subcutaneous tissue after having flushed the incision site, the subcutaneous tissue was reapproximated with 4-0 Vicryl suture, and the superficial skin with 4-0 Prolene suture. 8 mL of 0.5% Marcaine plain was injected about the surgical site and Betadine-soaked Xeroform gauze was placed over the incision site followed by fluff gauze, Kerlix roll, and stockinette. The tourniquet was deflated just prior to dressing at a time of 76 minutes. Cast padding was applied over the stockinette. This was followed by a below-knee fiberglass cast. The patient had tolerated the procedure and the anesthesia well with no complications noted, and a prompt hyperemic response was noted to the digits of all toes of the right foot upon deflation of the tourniquet. The patient has my phone number and is to contact me this evening to provide feedback on how she feels and will be scheduled to have sutures removed and re- examined in approximately 2 weeks' time and not greater than that. COLT / BASIL /[id number]
== END 2018-09-20 16:13 | disposition home or self-care (01) ==
LOC: MW.SDS 10:22
PROVIDERS: ATTEND Podiatrist Foot & Ankle Surgery
DX: S92.351A Displaced fracture of fifth metatarsal bone, right foot, initial encounter for closed fracture (principal); E66.9 Obesity, unspecified; Z68.31 Body mass index [BMI] 31.0-31.9, adult
CPT/HCPCS: 28485; 81025; J1100; J1200; J2250; J2370; J2405; J2704; J3010; J3490; J7120

== ENCOUNTER 2022-01-20 12:02 | Inpatient (IN) | payer BC ==
[2022-01-20 14:40] LABS: BLOOD UREA NITROGEN,BUN 8 mg/dL (7.0-18.0); CARBON DIOXIDE,CO2 21.5 mmol/L (21.0-32.0); CHLORIDE,CL 102 mmol/L (98-107); GLUCOSE RANDOM 142 mg/dL (74-106); POTASSIUM,K 3.3 mmol/L (3.5-5.1); SODIUM,NA 134 mmol/L (136-145)
[2022-01-20] MEDS ORDERED: Terbutaline 1 MG/ML SDV SUBCUT PRN (15:30)
[2022-01-20] MEDS ORDERED: Butorphanol 1 MG/ML SDV IVPUSH PRN (15:30)
[2022-01-20] MEDS ORDERED: Sodium Chloride 0.9% 2.5 ML Syringe FLUSH PRN (15:30)
[2022-01-20] MEDS ORDERED: Methylergonovine 0.2 MG/1 ML Amp IM PRN (15:30)
[2022-01-20] MEDS ORDERED: Water For Irrigation,Sterile 1,000 ML Container IRR PRN (15:30)
[2022-01-20] MEDS ORDERED: Dinoprostone 10 MG Insert VAG PRN (15:30)
[2022-01-20] MEDS ORDERED: Lidocaine 1% 50 ML MDV INJECT PRN (15:30)
[2022-01-20] MEDS ORDERED: Tranexamic Acid 1,000 MG in Sodium Chloride 0.9% 100 ML IV PRN (15:30)
[2022-01-20] MEDS ORDERED: Carboprost Tromethamine 250 MCG/1 ML Amp IM PRN (15:30)
[2022-01-20] MEDS ORDERED: Sodium Chloride 0.9% 20 ML SDV IV PRN (15:30)
[2022-01-20] MEDS ORDERED: Oxytocin/0.9 % Sodium Chloride 30 UNIT/500 ML BAG IV SCH ×2 (15:30)
[2022-01-20] MEDS ORDERED: Sodium Chloride 0.9% 10 ML Syringe FLUSH PRN (15:30)
[2022-01-20] MEDS ORDERED: Misoprostol 200 MCG Tab PO PRN (15:30)
[2022-01-20] MEDS: Lactated Ringers 1,000 ML IV SCH ×2 (16:10→22:38)
[2022-01-20] MEDS ORDERED: Ampicillin 2 GM in Sodium Chloride 0.9% 100 ML IV ONE (16:56)
[2022-01-20] MEDS ORDERED: Labetalol 100 MG/20 ML MDV IVPUSH ONE (17:59)
[2022-01-20] MEDS ORDERED: Ampicillin 1 GM in Sodium Chloride 0.9% 50 ML IV SCH ×2 (22:00→23:00)
[2022-01-21] MEDS: Lactated Ringers 1,000 ML IV SCH ×2 (04:54→11:35)
[2022-01-21] MEDS ORDERED: Witch Hazel Medicated Pads 40/Jar TOP PRN (12:44)
[2022-01-21] MEDS ORDERED: Lanolin 100% Cream 7 GM Tube TOP PRN (12:44)
[2022-01-21] MEDS ORDERED: Acetaminophen 500 MG Tab PO PRN ×2 (12:44)
[2022-01-21] MEDS ORDERED: Benzocaine/Menthol 20%-0.5% Spray 78 GM Cannister TOP PRN (12:44)
[2022-01-21] MEDS ORDERED: oxyCODONE 5 MG Tab PO PRN (12:44)
[2022-01-21] MEDS ORDERED: Ibuprofen 800 MG Tab PO PRN (12:44)
[2022-01-21] MEDS ORDERED: Ibuprofen 400 MG Tab PO PRN (12:44)
[2022-01-21] MEDS ORDERED: Docusate Sodium 100 MG Cap PO PRN (12:44)
[2022-01-21] MEDS ORDERED: Bisacodyl 10 MG Supp RECTAL PRN (12:44)
[2022-01-22 07:02] LABS: BLOOD UREA NITROGEN,BUN 10 mg/dL (7.0-18.0); CARBON DIOXIDE,CO2 21.7 mmol/L (21.0-32.0); CHLORIDE,CL 106 mmol/L (98-107); GLUCOSE RANDOM 86 mg/dL (74-106); POTASSIUM,K 3.8 mmol/L (3.5-5.1); SODIUM,NA 137 mmol/L (136-145)
== END 2022-01-23 08:37 | disposition home or self-care (01) | DRG 560 ==
LOC: MW.OBCHECK 12:02 → MW.OB 12:03 → MW.OBCHECK 15:20 → MW.OB 15:20 → MW.MS 01-21 04:23 → MW.OB 01-21 04:31 → OBSVTOIN 01-21 12:20 → MW.OB 01-21 15:56
PROVIDERS: ADMIT Obstetrics & Gynecology; ATTEND Obstetrics & Gynecology
PROC: 10E0XZZ Delivery of Products of Conception, External Approach (ICD-10-PCS; principal; 2022-01-21)
PROC: 10907ZC Drainage of Amniotic Fluid, Therapeutic from Products of Conception, Via Natural or Artificial Opening (ICD-10-PCS; 2022-01-21)
PROC: 3E033VJ Introduction of Other Hormone into Peripheral Vein, Percutaneous Approach (ICD-10-PCS; 2022-01-21)
PROC: 4A1HXCZ Monitoring of Products of Conception, Cardiac Rate, External Approach (ICD-10-PCS; 2022-01-21)
PROC: 3E0P7VZ Introduction of Hormone into Female Reproductive, Via Natural or Artificial Opening (ICD-10-PCS; 2022-01-21)
PROC: 0HQ9XZZ Repair Perineum Skin, External Approach (ICD-10-PCS; 2022-01-21)
DX: O13.4 Gestational [pregnancy-induced] hypertension without significant proteinuria, complicating childbirth (principal); Z3A.37 37 weeks gestation of pregnancy; Z37.0 Single live birth; O70.0 First degree perineal laceration during delivery; Z20.822 Contact with and (suspected) exposure to COVID-19
CPT/HCPCS: 36415; 59025; 59409; 80053; 81003; 82803; 85025; 85027; 86592; 86850; 86900; 86901; A9270-GY; J0290; J0595; J2001; J2590; J7120; U0002

== ENCOUNTER 2022-11-04 09:09 | Emergency (ER) | payer BC | END 2022-11-04 10:38 | disposition home or self-care (01) | LOC: MW.ED 09:09 | DX: R20.0 Anesthesia of skin (principal); R20.2 Paresthesia of skin; E66.9 Obesity, unspecified; Z68.30 Body mass index [BMI] 30.0-30.9, adult; Z95.810 Presence of automatic (implantable) cardiac defibrillator | CPT/HCPCS: 99283 ==

== ENCOUNTER 2024-09-11 21:59 | Emergency (ER) | payer BC ==
[2024-09-11 23:02] LABS: APPEARANCE,URINE SLT CLOUDY; BILIRUBIN,URINE NEGATIVE (NEGATIVE); COLOR,URINE YELLOW; GLUCOSE,URINE NEGATIVE (NEGATIVE); KETONES,URINE TRACE mg/dL (NEGATIVE); LEUKOCYTE ESTERASE,URINE LARGE (NEGATIVE); NITRITE,URINE POSITIVE (NEGATIVE); OCCULT BLOOD,URINE MODERATE (NEGATIVE); PH,URINE 6.5 (5.0-8.0); PROTEIN,URINE TRACE mg/dL (NEGATIVE); UROBILINOGEN,URINE 0.2 EU/dL (<2.0)
[2024-09-11 23:09] LABS: BACTERIA,URINE 1+ (NEGATIVE); MUCUS,URINE NOT SEEN (NONE-MOD); SQUAMOUS EPITHELIAL CELLS,UR RARE; WBC,URINE 30-35 (0-5/HPF)
[2024-09-11] MEDS: Magnesium Citrate Solution 296 ML Bottle PO ONE (23:15)
== END 2024-09-12 01:10 | disposition home or self-care (01) ==
LOC: MW.ED 21:59
DX: K59.00 Constipation, unspecified (principal); N39.0 Urinary tract infection, site not specified; E66.9 Obesity, unspecified; Z68.30 Body mass index [BMI] 30.0-30.9, adult; Z79.899 Other long term (current) drug therapy
CPT/HCPCS: 74019; 81001; 81025; 99284; A9270